=== PATIENT | female | born 1995 | race African-American/Black ===

== ENCOUNTER 2016-10-21 19:04 | Emergency (ER) | payer SELFPAY ==
[2016-10-21 18:49] LABS: URINE SOURCE CLEAN CATCH
[2016-10-21 18:52] LABS: URINE APPEARANCE CLEAR; URINE BILIRUBIN NEG (NEG); URINE BLOOD NEG (NEG); URINE COLOR YELLOW; URINE GLUCOSE NEG (NORM); URINE KETONE TRACE (NEG); URINE LEUKOCYTE ESTERASE 2+ (NEG); URINE NITRATE NEG (NEG); URINE PH 5.5 (5-8); URINE PROTEIN NEG (NEG)
[2016-10-21 18:53] LABS: MICRO INDICATED? YES
[2016-10-21 18:54] LABS: CULTURE INDICATED? YES; URINE BACTERIA 1+ (NEG); URINE SQUAMOUS EPITHELIAL CELL OCCAS /[HPF]; URINE TRANSITIONAL EPI CELLS FEW /[HPF]
[2016-10-21 18:55] LABS: URINE MUCUS PRESENT; URINE TRICHOMONAS PRESENT
== END 2016-10-21 19:50 | disposition home or self-care (01) ==
LOC: SED 19:04
PROVIDERS: Emergency Medicine
DX: A59.09 Other urogenital trichomoniasis (principal)
CPT/HCPCS: 81003; 84703; 87086; 87808; 87905; 96372; 99284; J0696